=== PATIENT | female | born 1955 | race Caucasian/White ===

== ENCOUNTER 2024-10-30 12:05 | Outpatient (OUT) | payer MEDICARE, OTHER, SELFPAY ==
--- NOTE | 2024-10-30 12:09 | XR_ITS ---
The [address] [address] Patient Name: SYL WEAVER MRN: [id number] date: 1955 Sex: F Assigned Patient Location: [facility] Current Patient Location: [facility] Accession/Order Number: [id number] Exam Date: 10/30/2024 13:37 Report Date: 10/30/2024 13:38 At the request of: JEAN CLAUDE AVILA DPRicky Procedure: XR foot RT min 3V XR foot RT min 3V 10/30/2024 12:22 PM SIGNS AND SYMPTOMS: Acute right foot pain over the second digit PROTOCOL: Frontal, lateral, and oblique radiographs of the right foot COMPARISON: None FINDINGS: There is mild narrowing of the first metatarsophalangeal joint space. There is medial deviation of the second digit. The joint spaces are otherwise preserved. There is no fracture. No dislocation or subluxation. There is mild plantar and Achilles surface calcaneal spurring. There is spurring along the dorsal aspect of the talocalcaneal joint. XR/XR foot RT min 3V IMPRESSION: No fracture or dislocation. Degenerative changes are noted at the first metatarsophalangeal joint with mild medial deviation of the second digit. Impression dictated by: Johnny Major M.D. 10/30/2024 1:38 PM Dictation Location: [place] [address] Electronically authenticated by: [id number] Y Date: 10/30/2024 13:38
== END 2024-10-30 12:06 | disposition home or self-care (01) ==
LOC: RAD 12:05
PROVIDERS: Family Provider Family Medicine; PCP Family Medicine; Visit Provider Podiatrist Foot & Ankle Surgery
DX: M79.671 Pain in right foot (principal)
CPT/HCPCS: 73630